=== PATIENT | female | born 1935 | race Caucasian/White ===

== ENCOUNTER 2017-08-03 17:43 | Inpatient (IN) | payer MEDICARE, OTHER ==
[~2017-08-03] VITALS: Ht 149.9 cm; Wt 57.8 kg
--- NOTE | ~2017-08-03 | HP ---
History And Physical [facility] [address] [place]. [address] NAME: ELADIO DIA : 35 STATUS : ADM IN [facility]#: [id number] AGE: 81 ADM/REG DATE : 08/03/17 MR#: [id number] REPORT SERV DATE: 08/04/17 DICTATED BY: WILLIE LOPEZ DATE: 08/04/17 REPORT STATUS : Draft TRANSCRIBED BY: MODL DATE: 08/04/17 DATE OF ADMISSION: 08/03/2017 REASON FOR ADMISSION: Perforated sigmoid diverticulitis with abscess. HISTORY OF PRESENT ILLNESS: This 81-year-old female presented to the emergency department with a several-week history of lower abdominal pain that became localized in the right lower quadrant. She was evaluated on an outpatient basis and underwent a CT scan that found the above findings. She was noted to have leukocytosis of 16,700 and no evidence of free air on the CT scan. She has a history of diverticulosis and had a colonoscopy one year ago that revealed no evidence of any malignancy. She was evaluated on an outpatient basis recently and was a tachycardic with a heart rate of 101. She was admitted for IV antibiotics, CT- guided drainage, serial physical exam, and bowel rest. She was informed that I recommend a resection of the involved segment after CT drainage with attempt at one stage surgery with methodist of GI continuity pending her response after image-guided drainage and with the history of her rheumatoid arthritis with need for prednisone. There is no acute abdominal findings at this time that warrant emergent surgery with colostomy. She has a history of hypertension, obesity, rheumatoid arthritis with steroid therapy and asthma. She denies any recent bright red blood per rectum, melena, or change in the caliber of her stools. PAST MEDICAL HISTORY: As above. PAST SURGICAL HISTORY: Hysterectomy and cholecystectomy. ALLERGIES: AVELOX, MANNITOL, ZOLEDRONIC ACID, GABAPENTIN AND SOME ENVIRONMENTAL ALLERGIES. PAST MEDICAL HISTORY: As above with first-degree internal hemorrhoids. MEDICATION: See hospital chart. SOCIAL HISTORY: The patient is . Her spouse is at the bedside with family. She denies alcohol, tobacco, or illicit drug usage. FAMILY HISTORY: Negative for colon cancer. REVIEW OF SYSTEMS: No headache, blurred vision, dizziness, chest pain, shortness of breath, cough, dyspnea on exertion, syncope, palpitations, jaundice, or itching. She does have abdominal pain. She did have some diarrhea with occasional blood in her stool. She denies bright red blood per rectum or melena that is consistent. PHYSICAL EXAMINATION: GENERAL: Well-developed female, in no apparent distress. NECK: Supple. No adenopathy. CARDIOVASCULAR: Regular rate and rhythm. RESPIRATORY: Clear to auscultation. History And Physical [address] [address] NAME: ELADIO DIA : 35 STATUS : ADM IN [facility]#: [id number] AGE: 81 ADM/REG DATE : 08/03/17 MR#: [id number] REPORT SERV DATE: 08/04/17 DICTATED BY: WILLIE LOPEZ DATE: 08/04/17 REPORT STATUS : Draft TRANSCRIBED BY: TREV DATE: 08/04/17 ABDOMEN: Soft, nondistended. The patient has lower quadrant and lower abdominal tenderness with voluntary guarding. There is no rebound. There is no mass. BACK: No CVA tenderness. EXTREMITIES: No clubbing, cyanosis, edema, or jaundice. ASSESSMENT: 1. Perforated sigmoid diverticulitis with abscess. 2. Leukocytosis secondary perforated sigmoid diverticulitis with abscess. 3. Rheumatoid arthritis with steroid therapy with prednisone. 4. Hypertension. 5. Asthma. 6. Obesity. PLAN: The patient will be admitted for IV antibiotics, bowel rest, hydration and serial physical exam after image guided drainage of the abscess. Pending clinical improvement, we will discuss timing of resection of the involved perforated segment with possibility of methodist of GI continuity pending clinical results with a history of need for steroids pending operative findings. The patient and family are aware of the current diagnosis and recommendations and are in agreement. DANIELA/TREV Willie Lopez M.D. / [id number] CC: Grzegorz Springer MATTHEW J. Donald Hetzel, M.D. Joseph Huffstutter, M.D.
--- NOTE | ~2017-08-03 | CN ---
Consultation Report [facility] [address] [place]. [address] NAME: ELADIO DIA : 35 STATUS : ADM IN PAT#: [id number] AGE: 81 ADM/REG DATE : 08/03/17 MR#: [id number] REPORT SERV DATE: 08/10/17 DICTATED BY: DATE: REPORT STATUS : Draft TRANSCRIBED BY: MODL DATE: 08/10/17 DATE OF CONSULTATION: REASON FOR CONSULTATION: THI. HISTORY OF PRESENT ILLNESS: This is a fairly pleasant 81-year-old female patient, who is followed in our office by Dr. Yolette Stephen. Baseline creatinine from laboratories available from our office appears to be around 1.2 to 1.3 with last available creatinine on 03/06/2017 at 1.3. She is admitted inpatient to Dr. Marquez's service and is postop day #1 from exploratory laparotomy with colostomy placement. This was undertaken for perforated sigmoid diverticulitis. She is doing very well postoperatively and is sitting at bedside. In review of her medications, it does appear she received two doses of Toradol postoperatively and is chronically managed in the outpatient setting on an ARB. She has reasonable urinary output. Her creatinine on review is near her known baseline at our office at 1.30 with modest acidosis with a CO2 of 19 on today's laboratories. We are asked to evaluate the patient today in light of her chronic renal disease and provide assistance in management. The patient is awake and alert, sitting at bedside. She has advanced her diet to what appears to be full liquids. She denies current chest pain. No nausea, vomiting, or diarrhea. PAST MEDICAL HISTORY: Positive for chronic renal disease followed by Dr. Yolette Stephen, baseline creatinine approximately 1.2 to 1.3. History remainder is positive for perforated sigmoid diverticulitis with abscess postop day 1 of exploratory lap with colostomy creation. Remainder of her history is positive for rheumatoid arthritis with chronic use of prednisone. The remainder of her medical history is positive for hypertension, anemia, and through review of her records, it appears she has had a previous occurrence of hypercalcemia. SOCIAL HISTORY: No ETOH. No illicit drugs. No tobacco. FAMILY HISTORY: Noncontributory, not reviewed during this consultation and dictation. ALLERGIES: INCLUDE AVELOX, MANNITOL, ZOLEDRONIC ACID, GABAPENTIN, AND ENVIRONMENTAL ALLERGIES. MEDICATIONS: Current active medications include Norvasc, Bentyl, heparin, NovoLog, Toradol, Synthroid, Cozaar, Singulair, Zosyn, Deltasone, Pravachol, Maxzide, and morphine [employer]. She also has antiemetic medications and electrolyte protocol as well in place. PHYSICAL EXAMINATION: VITAL SIGNS: Blood pressure 112/56, temperature 97.6, respiratory rate 18, and heart rate 89 beats per minute and regular. GENERAL: She is awake, alert, and oriented x3, in no acute distress. Sitting at bedside during evaluation. HEENT: Normocephalic and atraumatic. Normal ocular movements. No scleral icterus. No Consultation Report [address] [place]. [address] NAME: ELADIO DIA : 35 STATUS : ADM IN [facility]#: [id number] AGE: 81 ADM/REG DATE : 08/03/17 MR#: [id number] REPORT SERV DATE: 08/10/17 DICTATED BY: DATE: REPORT STATUS : Draft TRANSCRIBED BY: MODL DATE: 08/10/17 conjunctival pallor is appreciated. NECK: Supple without thyromegaly. No JVD or masses. CHEST: Positive S1 and S2. No rubs or gallops. LUNGS: Diminished. Clear to auscultation throughout. Normal expansion and effort bilaterally. No rhonchi or wheezes appreciated on auscultation. GI: Examination shows hypoactive but present bowel sounds. Ostomy in place postoperatively. : Examination is deferred. She does have Yu catheter to bedside drainage. NEUROLOGIC: Appears to be grossly intact, nonfocal. SKIN: Warm, dry, and intact to visualized surfaces. No rash, lesions, or ecchymosis. She does have a surgical wound that is closed with Dermabond. PSYCHIATRIC: Postoperatively, she appears to be of appropriate mood and affect. LABORATORY DATA: Pertinent laboratories and imaging to this evaluation are as follows: Most recent electrolyte profile; sodium 143, potassium 4.9, chloride 113, CO2 19, BUN 7, creatinine 1.30, and reflected GFR 38 mL/minute. Glucose of 132, calcium 7.8, magnesium 2.0, phosphorus 4.6. CBC shows white blood cell count of 21.8, RBC 3.13, hemoglobin 8.9, hematocrit 28.3, and platelets at 221. IMPRESSION AND PLAN: This is a chronic kidney disease stage 3, the patient of Dr. Yolette Stephen. Postop day 1 surgical intervention for sigmoid diverticulitis with ostomy creation. She appears to be near her normal baseline with baseline creatinine measurement at 1.3 today. Toradol was stopped in response to elevation of her creatinine outside of normal. Her laboratory readings here, which had been sub 1.0. She does have some intra and postoperative hypotension and could develop an acute kidney injury postoperatively. I would go ahead and hold her ARB, change her fluids to reflect fluids containing bicarb as her bicarb is somewhat depressed and her by mouth status has not ascended to p.o. medications at this point. Placed her on strict I's and Os. Follow her closely with serial laboratories and modify treatment plan based on clinical presentation, the patient's laboratory results. Further consultation with renal attending. No clinical reasoning at this point for urine studies or renal ultrasound. We will follow the patient and we appreciate consultation. /TREV Ortiz Lopez NP / [id number] CC: Grzegorz Springer MATTHEW J.
--- NOTE | ~2017-08-03 | OP ---
Record Of Operation [facility] [facility] [id number] [facility] [place]. [address] NAME: ELADIO DIA : 35 STATUS : ADM IN PAT#: [id number] AGE: 81 ADM/REG DATE : 08/03/17 MR#: [id number] REPORT SERV DATE: 08/09/17 DICTATED BY: LOIS LOPEZ DATE: 08/09/17 REPORT STATUS : Draft TRANSCRIBED BY: MODRadha DATE: 08/09/17 DATE OF PROCEDURE: PREOPERATIVE DIAGNOSES: 1. Perforated sigmoid diverticulitis with drain placed on a previous Interventional Radiology drain placement. 2. Rheumatoid arthritis, with steroids. 3. Hypertension. 4. Asthma. POSTOPERATIVE DIAGNOSES: 1. Perforated sigmoid diverticulitis with drain placed on a previous Interventional Radiology drain placement. 2. Rheumatoid arthritis, with steroids. 3. Hypertension. 4. Asthma. PROCEDURE: 1. Exploratory laparotomy. 2. Sigmoid colectomy with descending colostomy. ANESTHESIA: General. KING MAKER: Reuben. COMPLICATIONS: None. DRAINS: None. ESTIMATED BLOOD LOSS: 75 mL. FINDINGS: The patient was noted to have a significant residual inflammatory changes extending close to the peritoneal reflection in the distal sigmoid colon. In light of the continued active inflammation and current steroid therapy, the decision was made not to attempt to disturb GI continuity. TECHNIQUE: The patient was brought to the operating room placed on the table in supine position. She had preoperative IV antibiotics. She had sequential hose in place. She voided prior to the procedure. She underwent general endotracheal anesthesia and was prepped and draped in sterile fashion. A time-out was completed. She was in lithotomy position and a Yu catheter was placed there. After the time-out, a midline incision was made and the abdomen was entered. The patient was noted to have significant scarring of the small bowel into the pelvis. These adhesions were taken down using Metzenbaum scissors until the entire distal 2 feet of the terminal ilium was dissected out of the pelvis and the sigmoid colon was identified on its right side aspect. At this point, the Bookwalter retractor was placed and positioned to optimize viewing. The patient was placed in Record Of Operation [facility] [facility] [id number] [facility] [place]. [address] NAME: ELADIO DIA : 35 STATUS : ADM IN PAT#: [id number] AGE: 81 ADM/REG DATE : 08/03/17 MR#: [id number] REPORT SERV DATE: 08/09/17 DICTATED BY: LOIS LOPEZ DATE: 08/09/17 REPORT STATUS : Draft TRANSCRIBED BY: TREV DATE: 08/09/17 Trendelenburg position. The white line of Toldt was identified and the sigmoid colon and ascending colon were mobilized along the white line of Toldt to toward the splenic flexure. The bowel was mobilized in the midline in the avascular plane. The dissection then continued to the level of the descending colon sigmoid colon junction, was healthy without inflammation. A window was created in the mesenteric border and the linear stapler was used to divide the bowel at this point. The mesocolon was then divided onto the peritoneal reflection and behind the peritoneal reflection in the retrorectus space using electrocautery and the [employer] ultrasonic drew. The dissection continued to the level of the rectosigmoid junction and the bowel was then divided at the proximal rectum with a contour stapler. The staple line was noted to be hemostatic. The lateral edges of the staple line were marked with 2-0 Prolene sutures for future use. There was some bleeding from the left side of the pelvic floor from the adhesiolysis, this was necessary to mobilize the sigmoid colon of the pelvis. This was controlled with pressure and Lorri. The involved segment was sent to pathology. The abdomen was then thoroughly irrigated and hemostasis was noted. The descending colon was then prepared for colostomy formation. At this point, as there was no evidence of any other abnormalities, Seprafilm was placed in the pelvic floor over the rectal stump. The small bowel was allowed to return to the pelvis. The anterior fascia was then reapproximated using a running 0 Vicryl suture after the colostomy was formed in the left lower quadrant and the bowel segment was brought out with approximately 5 cm above the skin without tension. The mesentery was secured to the anterior abdominal wall of the sigmoid colon laterally with interrupted Vicryl sutures. The bowel was then oriented properly for colostomy formation and the anterior fascia was closed with a running #1 PDS suture. The subcutaneous tissues were then thoroughly irrigated and reapproximated using interrupted Vicryl sutures. The skin edges were reapproximated using running subcuticular Monocryl sutures. Dermabond was applied. The colostomy was then formed with three-point fixation with Vicryl. The colostomy appliance was then applied. The patient was extubated and taken to the recovery room in stable condition. All sponge and needle counts were reported correct. DANIELA/MODL Lois Lopez M.D. / [id number] CC: Grzegorz Springer MATTHEW J. Donald Hetzel, M.D. Joseph Huffstutter, M.D.
[~2017-08-03 17:43] MED LIST: ADVAIR100 INH; ADVAIR250 INH; ATV1 PO; BENTYL10 PO; COZ50 PO; GERIATRIC HP PO; HYZAAR 100/25 T1 TAB PO; LEVOTHYROXIN50 MCG PO; LIBRAX PO; MAX25 PO; NORV10 PO; P5 PO; PCET PO; PRAVAC PO; PREM625 PO; PRILO PO; PRILOSEC40 MG PO; SINGULAIR1 PO; SYN075 PO; TOPXL50 PO; VITAMIN D1000 UNI1 PO; VITC500 PO; ZYRTEC ALLGY10 MG PO
[2017-08-03 18:14] LABS: BASOPHILS 0.4 %; BASOPHILS ABSOLUTE 0.06 10/3/uL (0.0-0.16); EOSINOPHILS 0.1 %; EOSINOPHILS ABSOLUTE 0.02 10/3/uL (0.0-0.53); HEMATOCRIT 40.6 % (36.0-48.0); HEMOGLOBIN 12.7 g/dL (12.0-16.0); IMMATURE GRANULOCYTES 2.3 %; IMMATURE GRANULOCYTES ABSOLUTE 0.38 10/3/uL (0.0-0.11); LYMPHOCYTES 17.7 %; LYMPHOCYTES ABSOLUTE 2.95 10/3/uL (0.67-4.30); MEAN CORPUS HGB CONC 31.3 g/dL (32.0-36.0); MEAN CORPUSCULAR HEMOGLOB 27.9 pg (26.0-34.0); MEAN CORPUSCULAR VOLUME 89.2 fL (80-100); MEAN PLATELET VOLUME 10.6 fL (9.2-13.0); MONOCYTES 6.5 %; MONOCYTES ABSOLUTE 1.08 10/3/uL (0.21-1.20); RBC DISTRIBUTION WIDTH 15.2 % (12.0-16.0); RED CELL COUNT 4.55 10/6/uL (4.0-5.6)
[2017-08-03 18:15] LABS: MANUAL DIFF NO %; PLATELET COUNT 286 10/3/uL (150-400); WHITE BLOOD CELLS 16.7 10/3/uL (4.5-10.5)
[2017-08-03 18:32] LABS: A/G RATIO 0.9 (0.7-1.9); ALBUMIN 3.4 G/DL (3.5-5.0); ALKALINE PHOSPHATASE 142 U/L (45-117); BUN (BLOOD UREA NITROGEN) 19 MG/DL (6-23); CALCIUM, SERUM 9.1 MG/DL (8.5-10.4); CHLORIDE, SERUM 103 MMOL/L (96-112); CO2 (CARBON DIOXIDE) 27 MMOL/L (24-34); CREATININE 1.22 MG/DL (0.55-1.02); GFR AFRICAN AMERICAN 48 ML/MIN (>=60); GFR NON AFRICAN AMERICAN 42 ML/MIN (>=60); GLOBULIN 3.9 G/DL (2.5-4.1); GLUCOSE, SERUM 110 MG/DL (60-99); POTASSIUM, SERUM 3.9 MMOL/L (3.5-5.3); SGOT(AST) 22 U/L (5-40); SGPT(ALT) 20 U/L (5-65); SODIUM, SERUM 138 MMOL/L (135-148); TOTAL BILIRUBIN 0.6 MG/DL (0-1.2); TOTAL PROTEIN 7.3 G/DL (6.0-8.5)
[2017-08-03 18:40] LABS: WBC (NOT ORDERED) (RFLEX) 0 (0-5)
[2017-08-03 18:49] LABS: ASCORBIC ACID (UR NOT ORDER) NEG (NEG); BILIRUBIN, URINE NEGATIVE (NEG); ER URINALYSIS TAT 0 Hrs 09 Mins; KETONE, URINE NEGATIVE (NEG); LEUKOCYTE ESTERASE(NOT OR NEG (NEG); NITRITE (URINE) NEG (NEG)
[2017-08-03] MEDS ORDERED: PRILOSEC40 MG PO (19:30)
[2017-08-03] MEDS ORDERED: BENTYL10 PO (19:30)
[2017-08-03] MEDS ORDERED: P5 PO (19:30)
[2017-08-03] MEDS ORDERED: MAX25 PO (19:30)
[2017-08-03] MEDS ORDERED: PRAVAC PO (19:31)
[2017-08-03] MEDS ORDERED: NORV10 PO (19:31)
[2017-08-03] MEDS ORDERED: COZ50 PO (19:31)
[2017-08-03] MEDS ORDERED: VITAMIN D31000 UNIT PO (19:31)
[2017-08-03] MEDS ORDERED: ZYRTEC ALLGY10 MG PO (19:32)
[2017-08-03] MEDS ORDERED: SYN075 PO (19:32)
[2017-08-03] MEDS ORDERED: SINGULAIR1 PO (19:36)
[2017-08-04 05:14] LABS: BASOPHILS 0.4 %; BASOPHILS ABSOLUTE 0.06 10/3/uL (0.0-0.16); EOSINOPHILS 0.3 %; EOSINOPHILS ABSOLUTE 0.05 10/3/uL (0.0-0.53); HEMOGLOBIN 11.3 g/dL (12.0-16.0); IMMATURE GRANULOCYTES ABSOLUTE 0.28 10/3/uL (0.0-0.11); LYMPHOCYTES ABSOLUTE 2.72 10/3/uL (0.67-4.30); MEAN CORPUS HGB CONC 31.6 g/dL (32.0-36.0); MEAN CORPUSCULAR HEMOGLOB 28.2 pg (26.0-34.0); MEAN CORPUSCULAR VOLUME 89.3 fL (80-100); MEAN PLATELET VOLUME 10.5 fL (9.2-13.0); MONOCYTES 6.2 %; MONOCYTES ABSOLUTE 0.89 10/3/uL (0.21-1.20); NEUTROPHILS 72.1 %; NEUTROPHILS ABSOLUTE 10.32 10/3/uL (2.02-8.40); PLATELET COUNT 250 10/3/uL (150-400); RED CELL COUNT 4.01 10/6/uL (4.0-5.6); WHITE BLOOD CELLS 14.3 10/3/uL (4.5-10.5)
[2017-08-04 05:15] LABS: HEMATOCRIT 35.8 % (36.0-48.0); MANUAL DIFF NO %
[2017-08-04 05:27] LABS: A/G RATIO 0.9 (0.7-1.9); ALBUMIN 2.8 G/DL (3.5-5.0); BUN (BLOOD UREA NITROGEN) 16 MG/DL (6-23); CHLORIDE, SERUM 107 MMOL/L (96-112); CO2 (CARBON DIOXIDE) 27 MMOL/L (24-34); CREATININE 0.93 MG/DL (0.55-1.02); GFR AFRICAN AMERICAN 67 ML/MIN (>=60); GFR NON AFRICAN AMERICAN 58 ML/MIN (>=60); GLOBULIN 3.2 G/DL (2.5-4.1); POTASSIUM, SERUM 3.6 MMOL/L (3.5-5.3); SGOT(AST) 17 U/L (5-40); SGPT(ALT) 19 U/L (5-65); SODIUM, SERUM 143 MMOL/L (135-148); TOTAL BILIRUBIN 0.5 MG/DL (0-1.2)
[2017-08-04 05:34] LABS: ALKALINE PHOSPHATASE 122 U/L (45-117); GLUCOSE, SERUM 85 MG/DL (60-99)
[2017-08-04 09:30] LABS: INTERNATIONAL NORMAL RATI 1.1 UNITS (-); PARTIAL THROMBO TIME 27.1 SEC (22.5-37.2); PROTIME (NOT ORD) 13.6 SEC (12.0-14.5)
[2017-08-05 06:09] LABS: HEMATOCRIT 34.8 % (36.0-48.0); HEMOGLOBIN 10.8 g/dL (12.0-16.0); MANUAL DIFF YES %; MEAN CORPUSCULAR VOLUME 90.2 fL (80-100); MEAN PLATELET VOLUME 10.7 fL (9.2-13.0); PLATELET COUNT 226 10/3/uL (150-400); RBC DISTRIBUTION WIDTH 15.4 % (12.0-16.0); RED CELL COUNT 3.86 10/6/uL (4.0-5.6); WHITE BLOOD CELLS 13.4 10/3/uL (4.5-10.5)
[2017-08-05 06:20] LABS: BUN (BLOOD UREA NITROGEN) 13 MG/DL (6-23); CALCIUM, SERUM 8.1 MG/DL (8.5-10.4); CHLORIDE, SERUM 109 MMOL/L (96-112); CO2 (CARBON DIOXIDE) 24 MMOL/L (24-34); CREATININE 1.04 MG/DL (0.55-1.02); GFR AFRICAN AMERICAN 58 ML/MIN (>=60); GFR NON AFRICAN AMERICAN 50 ML/MIN (>=60); GLUCOSE, SERUM 91 MG/DL (60-99); POTASSIUM, SERUM 3.5 MMOL/L (3.5-5.3); SODIUM, SERUM 143 MMOL/L (135-148)
[2017-08-05 07:29] LABS: BAND NEUTROPHILS 3 %; LYMPHOCYTES 18 %; LYMPHOCYTES ABSOLUTE (CALC) 2.41 10/3/uL (0.67-4.30); MONOCYTES 2 %; MONOCYTES ABSOLUTE (CALC) 0.27 10/3/uL (0.21-1.20); NEUTROPHILS ABSOLUTE (CALC) 10.72 10/3/uL (2.02-8.40); PLATELET ESTIMATE ADQ (ADEQUATE); RBC MORPHOLOGY NORM (NORMAL); SEGMENTED NEUTROPHIL (0) 77 %; TOTAL NUCLEATED CELLS 100
[2017-08-06 05:02] LABS: BASOPHILS 0.2 %; BASOPHILS ABSOLUTE 0.03 10/3/uL (0.0-0.16); EOSINOPHILS 1.4 %; EOSINOPHILS ABSOLUTE 0.18 10/3/uL (0.0-0.53); HEMATOCRIT 31.4 % (36.0-48.0); IMMATURE GRANULOCYTES 0.8 %; LYMPHOCYTES 16.6 %; LYMPHOCYTES ABSOLUTE 2.07 10/3/uL (0.67-4.30); MEAN CORPUS HGB CONC 31.8 g/dL (32.0-36.0); MEAN CORPUSCULAR HEMOGLOB 28.7 pg (26.0-34.0); MEAN CORPUSCULAR VOLUME 90.2 fL (80-100); MEAN PLATELET VOLUME 10.9 fL (9.2-13.0); MONOCYTES 7.3 %; MONOCYTES ABSOLUTE 0.91 10/3/uL (0.21-1.20); NEUTROPHILS 73.7 %; NEUTROPHILS ABSOLUTE 9.18 10/3/uL (2.02-8.40); PLATELET COUNT 192 10/3/uL (150-400); RBC DISTRIBUTION WIDTH 15.3 % (12.0-16.0); RED CELL COUNT 3.48 10/6/uL (4.0-5.6); WHITE BLOOD CELLS 12.5 10/3/uL (4.5-10.5)
[2017-08-06 05:04] LABS: MANUAL DIFF NO %
[2017-08-06 05:08] LABS: BUN (BLOOD UREA NITROGEN) 7 MG/DL (6-23); CALCIUM, SERUM 7.8 MG/DL (8.5-10.4); CHLORIDE, SERUM 113 MMOL/L (96-112); CO2 (CARBON DIOXIDE) 25 MMOL/L (24-34); CREATININE 0.87 MG/DL (0.55-1.02); GFR AFRICAN AMERICAN 72 ML/MIN (>=60); GFR NON AFRICAN AMERICAN 62 ML/MIN (>=60); GLUCOSE, SERUM 141 MG/DL (60-99); POTASSIUM, SERUM 4.1 MMOL/L (3.5-5.3); SODIUM, SERUM 145 MMOL/L (135-148)
[2017-08-07 05:52] LABS: BASOPHILS 0.3 %; BASOPHILS ABSOLUTE 0.03 10/3/uL (0.0-0.16); EOSINOPHILS 1.3 %; EOSINOPHILS ABSOLUTE 0.14 10/3/uL (0.0-0.53); HEMATOCRIT 30.7 % (36.0-48.0); HEMOGLOBIN 9.6 g/dL (12.0-16.0); IMMATURE GRANULOCYTES 0.5 %; IMMATURE GRANULOCYTES ABSOLUTE 0.06 10/3/uL (0.0-0.11); LYMPHOCYTES 13.6 %; LYMPHOCYTES ABSOLUTE 1.49 10/3/uL (0.67-4.30); MEAN CORPUS HGB CONC 31.3 g/dL (32.0-36.0); MEAN CORPUSCULAR HEMOGLOB 28.2 pg (26.0-34.0); MEAN CORPUSCULAR VOLUME 90.3 fL (80-100); MEAN PLATELET VOLUME 11.2 fL (9.2-13.0); MONOCYTES 7.6 %; MONOCYTES ABSOLUTE 0.83 10/3/uL (0.21-1.20); NEUTROPHILS 76.7 %; NEUTROPHILS ABSOLUTE 8.37 10/3/uL (2.02-8.40); PLATELET COUNT 181 10/3/uL (150-400); RBC DISTRIBUTION WIDTH 14.9 % (12.0-16.0); WHITE BLOOD CELLS 10.9 10/3/uL (4.5-10.5)
[2017-08-07 05:54] LABS: MANUAL DIFF NO %
[2017-08-07 05:57] LABS: CALCIUM, SERUM 8.2 MG/DL (8.5-10.4); CHLORIDE, SERUM 112 MMOL/L (96-112); CO2 (CARBON DIOXIDE) 25 MMOL/L (24-34); CREATININE 0.74 MG/DL (0.55-1.02); GFR AFRICAN AMERICAN 88 ML/MIN (>=60); GFR NON AFRICAN AMERICAN 76 ML/MIN (>=60); POTASSIUM, SERUM 3.6 MMOL/L (3.5-5.3); SODIUM, SERUM 145 MMOL/L (135-148)
[2017-08-07 05:59] LABS: BUN (BLOOD UREA NITROGEN) 3 MG/DL (6-23); GLUCOSE, SERUM 99 MG/DL (60-99)
[2017-08-08 06:12] LABS: BASOPHILS 0.5 %; BASOPHILS ABSOLUTE 0.05 10/3/uL (0.0-0.16); EOSINOPHILS 1.4 %; EOSINOPHILS ABSOLUTE 0.13 10/3/uL (0.0-0.53); HEMATOCRIT 30.7 % (36.0-48.0); HEMOGLOBIN 9.8 g/dL (12.0-16.0); IMMATURE GRANULOCYTES 0.4 %; IMMATURE GRANULOCYTES ABSOLUTE 0.04 10/3/uL (0.0-0.11); LYMPHOCYTES ABSOLUTE 1.52 10/3/uL (0.67-4.30); MEAN CORPUS HGB CONC 31.9 g/dL (32.0-36.0); MEAN CORPUSCULAR HEMOGLOB 28.7 pg (26.0-34.0); MEAN PLATELET VOLUME 11.8 fL (9.2-13.0); MONOCYTES 9.4 %; MONOCYTES ABSOLUTE 0.89 10/3/uL (0.21-1.20); NEUTROPHILS 72.3 %; NEUTROPHILS ABSOLUTE 6.87 10/3/uL (2.02-8.40); PLATELET COUNT 192 10/3/uL (150-400); RBC DISTRIBUTION WIDTH 14.9 % (12.0-16.0); RED CELL COUNT 3.41 10/6/uL (4.0-5.6); WHITE BLOOD CELLS 9.5 10/3/uL (4.5-10.5)
[2017-08-08 06:13] LABS: MANUAL DIFF NO %
[2017-08-08 06:30] LABS: BUN (BLOOD UREA NITROGEN) 2 MG/DL (6-23); CALCIUM, SERUM 8.7 MG/DL (8.5-10.4); CHLORIDE, SERUM 113 MMOL/L (96-112); CO2 (CARBON DIOXIDE) 22 MMOL/L (24-34); CREATININE 0.71 MG/DL (0.55-1.02); GFR AFRICAN AMERICAN 93 ML/MIN (>=60); GFR NON AFRICAN AMERICAN 80 ML/MIN (>=60); GLUCOSE, SERUM 102 MG/DL (60-99); POTASSIUM, SERUM 3.7 MMOL/L (3.5-5.3); SODIUM, SERUM 144 MMOL/L (135-148)
[2017-08-09 06:36] LABS: BASOPHILS 0.5 %; BASOPHILS ABSOLUTE 0.05 10/3/uL (0.0-0.16); EOSINOPHILS 1.3 %; EOSINOPHILS ABSOLUTE 0.12 10/3/uL (0.0-0.53); HEMATOCRIT 31.9 % (36.0-48.0); IMMATURE GRANULOCYTES 0.4 %; IMMATURE GRANULOCYTES ABSOLUTE 0.04 10/3/uL (0.0-0.11); LYMPHOCYTES 20.5 %; LYMPHOCYTES ABSOLUTE 1.91 10/3/uL (0.67-4.30); MEAN CORPUS HGB CONC 31.3 g/dL (32.0-36.0); MEAN CORPUSCULAR HEMOGLOB 28.1 pg (26.0-34.0); MEAN CORPUSCULAR VOLUME 89.6 fL (80-100); MEAN PLATELET VOLUME 11.5 fL (9.2-13.0); MONOCYTES 9.4 %; MONOCYTES ABSOLUTE 0.88 10/3/uL (0.21-1.20); NEUTROPHILS 67.9 %; NEUTROPHILS ABSOLUTE 6.33 10/3/uL (2.02-8.40); PLATELET COUNT 208 10/3/uL (150-400); RBC DISTRIBUTION WIDTH 15.2 % (12.0-16.0); RED CELL COUNT 3.56 10/6/uL (4.0-5.6); WHITE BLOOD CELLS 9.3 10/3/uL (4.5-10.5)
[2017-08-09 06:37] LABS: MANUAL DIFF NO %
[2017-08-09 06:48] LABS: BUN (BLOOD UREA NITROGEN) 2 MG/DL (6-23); CALCIUM, SERUM 8.6 MG/DL (8.5-10.4); CHLORIDE, SERUM 112 MMOL/L (96-112); CO2 (CARBON DIOXIDE) 24 MMOL/L (24-34); CREATININE 0.73 MG/DL (0.55-1.02); GFR AFRICAN AMERICAN 90 ML/MIN (>=60); GFR NON AFRICAN AMERICAN 77 ML/MIN (>=60); GLUCOSE, SERUM 90 MG/DL (60-99); PHOSPHORUS, SERUM 2.3 MG/DL (2.5-4.5); POTASSIUM, SERUM 3.9 MMOL/L (3.5-5.3); SODIUM, SERUM 144 MMOL/L (135-148)
[2017-08-10 04:52] LABS: BASOPHILS 0 %; BASOPHILS ABSOLUTE 0.01 10/3/uL (0.0-0.16); EOSINOPHILS 0 %; HEMOGLOBIN 8.9 g/dL (12.0-16.0); IMMATURE GRANULOCYTES 0.5 %; LYMPHOCYTES 3.7 %; LYMPHOCYTES ABSOLUTE 0.81 10/3/uL (0.67-4.30); MEAN CORPUS HGB CONC 31.4 g/dL (32.0-36.0); MEAN CORPUSCULAR HEMOGLOB 28.4 pg (26.0-34.0); MEAN CORPUSCULAR VOLUME 90.4 fL (80-100); MEAN PLATELET VOLUME 11.6 fL (9.2-13.0); MONOCYTES 5.5 %; NEUTROPHILS 90.3 %; NEUTROPHILS ABSOLUTE 19.65 10/3/uL (2.02-8.40); PLATELET COUNT 221 10/3/uL (150-400); RBC DISTRIBUTION WIDTH 15.4 % (12.0-16.0); RED CELL COUNT 3.13 10/6/uL (4.0-5.6)
[2017-08-10 04:55] LABS: HEMATOCRIT 28.3 % (36.0-48.0); MANUAL DIFF NO %; WHITE BLOOD CELLS 21.8 10/3/uL (4.5-10.5)
[2017-08-10 05:10] LABS: BUN (BLOOD UREA NITROGEN) 7 MG/DL (6-23); CALCIUM, SERUM 7.8 MG/DL (8.5-10.4); CHLORIDE, SERUM 113 MMOL/L (96-112); CO2 (CARBON DIOXIDE) 19 MMOL/L (24-34); GFR AFRICAN AMERICAN 45 ML/MIN (>=60); GFR NON AFRICAN AMERICAN 38 ML/MIN (>=60); GLUCOSE, SERUM 132 MG/DL (60-99); POTASSIUM, SERUM 4.9 MMOL/L (3.5-5.3); SODIUM, SERUM 143 MMOL/L (135-148)
[2017-08-10 07:46] LABS: PHOSPHORUS, SERUM 4.6 MG/DL (2.5-4.5)
[2017-08-11 07:45] LABS: BASOPHILS 0.1 %; BASOPHILS ABSOLUTE 0.02 10/3/uL (0.0-0.16); EOSINOPHILS 0.2 %; EOSINOPHILS ABSOLUTE 0.03 10/3/uL (0.0-0.53); HEMOGLOBIN 7.5 g/dL (12.0-16.0); IMMATURE GRANULOCYTES 0.4 %; IMMATURE GRANULOCYTES ABSOLUTE 0.07 10/3/uL (0.0-0.11); LYMPHOCYTES 7.7 %; LYMPHOCYTES ABSOLUTE 1.41 10/3/uL (0.67-4.30); MEAN CORPUS HGB CONC 32.1 g/dL (32.0-36.0); MEAN CORPUSCULAR HEMOGLOB 28.7 pg (26.0-34.0); MEAN CORPUSCULAR VOLUME 89.7 fL (80-100); MEAN PLATELET VOLUME 11.3 fL (9.2-13.0); MONOCYTES 7.8 %; MONOCYTES ABSOLUTE 1.43 10/3/uL (0.21-1.20); NEUTROPHILS 83.8 %; NEUTROPHILS ABSOLUTE 15.37 10/3/uL (2.02-8.40); PLATELET COUNT 179 10/3/uL (150-400); RBC DISTRIBUTION WIDTH 15.4 % (12.0-16.0); RED CELL COUNT 2.61 10/6/uL (4.0-5.6); WHITE BLOOD CELLS 18.3 10/3/uL (4.5-10.5)
[2017-08-11 07:47] LABS: HEMATOCRIT 23.4 % (36.0-48.0); MANUAL DIFF NO %
[2017-08-11 08:06] LABS: ALBUMIN 1.9 G/DL (3.5-5.0); BUN (BLOOD UREA NITROGEN) 10 MG/DL (6-23); CALCIUM, SERUM 6.9 MG/DL (8.5-10.4); CHLORIDE, SERUM 111 MMOL/L (96-112); CO2 (CARBON DIOXIDE) 25 MMOL/L (24-34); CREATININE 0.89 MG/DL (0.55-1.02); GFR AFRICAN AMERICAN 70 ML/MIN (>=60); GFR NON AFRICAN AMERICAN 61 ML/MIN (>=60); GLUCOSE, SERUM 81 MG/DL (60-99); PHOSPHORUS, SERUM 2.1 MG/DL (2.5-4.5); POTASSIUM, SERUM 3.6 MMOL/L (3.5-5.3); SODIUM, SERUM 142 MMOL/L (135-148)
[2017-08-12 05:42] LABS: BASOPHILS 0.2 %; BASOPHILS ABSOLUTE 0.03 10/3/uL (0.0-0.16); EOSINOPHILS 0.7 %; EOSINOPHILS ABSOLUTE 0.12 10/3/uL (0.0-0.53); HEMATOCRIT 25.3 % (36.0-48.0); HEMOGLOBIN 8.1 g/dL (12.0-16.0); IMMATURE GRANULOCYTES 0.6 %; IMMATURE GRANULOCYTES ABSOLUTE 0.11 10/3/uL (0.0-0.11); LYMPHOCYTES ABSOLUTE 2.08 10/3/uL (0.67-4.30); MEAN CORPUSCULAR HEMOGLOB 28.6 pg (26.0-34.0); MEAN CORPUSCULAR VOLUME 89.4 fL (80-100); MEAN PLATELET VOLUME 11.2 fL (9.2-13.0); MONOCYTES 7.5 %; RBC DISTRIBUTION WIDTH 15.5 % (12.0-16.0); RED CELL COUNT 2.83 10/6/uL (4.0-5.6); WHITE BLOOD CELLS 17.3 10/3/uL (4.5-10.5)
[2017-08-12 05:49] LABS: MANUAL DIFF NO %; PLATELET COUNT 238 10/3/uL (150-400)
[2017-08-12 05:52] LABS: BUN (BLOOD UREA NITROGEN) 8 MG/DL (6-23); CALCIUM, SERUM 7.6 MG/DL (8.5-10.4); CHLORIDE, SERUM 108 MMOL/L (96-112); CO2 (CARBON DIOXIDE) 27 MMOL/L (24-34); CREATININE 0.72 MG/DL (0.55-1.02); GFR AFRICAN AMERICAN 91 ML/MIN (>=60); GFR NON AFRICAN AMERICAN 79 ML/MIN (>=60); GLUCOSE, SERUM 74 MG/DL (60-99); PHOSPHORUS, SERUM 2.4 MG/DL (2.5-4.5); POTASSIUM, SERUM 3.5 MMOL/L (3.5-5.3); SODIUM, SERUM 143 MMOL/L (135-148)
[2017-08-13 05:15] LABS: BASOPHILS 0.3 %; BASOPHILS ABSOLUTE 0.04 10/3/uL (0.0-0.16); EOSINOPHILS 0.3 %; EOSINOPHILS ABSOLUTE 0.05 10/3/uL (0.0-0.53); HEMOGLOBIN 8.3 g/dL (12.0-16.0); IMMATURE GRANULOCYTES 1.1 %; IMMATURE GRANULOCYTES ABSOLUTE 0.18 10/3/uL (0.0-0.11); LYMPHOCYTES 10.9 %; LYMPHOCYTES ABSOLUTE 1.73 10/3/uL (0.67-4.30); MEAN CORPUS HGB CONC 30.7 g/dL (32.0-36.0); MEAN CORPUSCULAR VOLUME 91.2 fL (80-100); MEAN PLATELET VOLUME 10.8 fL (9.2-13.0); MONOCYTES 6.9 %; MONOCYTES ABSOLUTE 1.09 10/3/uL (0.21-1.20); NEUTROPHILS 80.5 %; NEUTROPHILS ABSOLUTE 12.75 10/3/uL (2.02-8.40); RBC DISTRIBUTION WIDTH 15.4 % (12.0-16.0); RED CELL COUNT 2.96 10/6/uL (4.0-5.6); WHITE BLOOD CELLS 15.8 10/3/uL (4.5-10.5)
[2017-08-13 05:16] LABS: MANUAL DIFF NO %; PLATELET COUNT 312 10/3/uL (150-400)
[2017-08-13 05:19] LABS: BUN (BLOOD UREA NITROGEN) 8 MG/DL (6-23); CALCIUM, SERUM 8.7 MG/DL (8.5-10.4); CHLORIDE, SERUM 106 MMOL/L (96-112); CO2 (CARBON DIOXIDE) 23 MMOL/L (24-34); CREATININE 0.63 MG/DL (0.55-1.02); GFR AFRICAN AMERICAN 97 ML/MIN (>=60); GFR NON AFRICAN AMERICAN 84 ML/MIN (>=60); GLUCOSE, SERUM 71 MG/DL (60-99); PHOSPHORUS, SERUM 2.8 MG/DL (2.5-4.5); POTASSIUM, SERUM 3.5 MMOL/L (3.5-5.3); SODIUM, SERUM 143 MMOL/L (135-148)
[2017-08-14 06:32] LABS: BASOPHILS 0.3 %; BASOPHILS ABSOLUTE 0.04 10/3/uL (0.0-0.16); EOSINOPHILS 1.4 %; EOSINOPHILS ABSOLUTE 0.17 10/3/uL (0.0-0.53); HEMOGLOBIN 8.1 g/dL (12.0-16.0); IMMATURE GRANULOCYTES 2.9 %; IMMATURE GRANULOCYTES ABSOLUTE 0.35 10/3/uL (0.0-0.11); LYMPHOCYTES 14.6 %; LYMPHOCYTES ABSOLUTE 1.77 10/3/uL (0.67-4.30); MEAN CORPUS HGB CONC 31.2 g/dL (32.0-36.0); MEAN CORPUSCULAR HEMOGLOB 27.8 pg (26.0-34.0); MEAN CORPUSCULAR VOLUME 89.3 fL (80-100); MEAN PLATELET VOLUME 11.1 fL (9.2-13.0); MONOCYTES 9.5 %; MONOCYTES ABSOLUTE 1.15 10/3/uL (0.21-1.20); NEUTROPHILS 71.3 %; NEUTROPHILS ABSOLUTE 8.65 10/3/uL (2.02-8.40); NUCLEATED RED BLOOD CELLS 1.2 /100WBC (0-0); PLATELET COUNT 264 10/3/uL (150-400); RBC DISTRIBUTION WIDTH 15.6 % (12.0-16.0); RED CELL COUNT 2.91 10/6/uL (4.0-5.6); WHITE BLOOD CELLS 12.1 10/3/uL (4.5-10.5)
[2017-08-14 06:33] LABS: MANUAL DIFF NO %
[2017-08-14 06:46] LABS: BUN (BLOOD UREA NITROGEN) 6 MG/DL (6-23); CALCIUM, SERUM 8.4 MG/DL (8.5-10.4); CHLORIDE, SERUM 109 MMOL/L (96-112); CO2 (CARBON DIOXIDE) 24 MMOL/L (24-34); CREATININE 0.57 MG/DL (0.55-1.02); GFR AFRICAN AMERICAN 101 ML/MIN (>=60); GFR NON AFRICAN AMERICAN 87 ML/MIN (>=60); GLUCOSE, SERUM 68 MG/DL (60-99); POTASSIUM, SERUM 3.5 MMOL/L (3.5-5.3); SODIUM, SERUM 145 MMOL/L (135-148)
== END 2017-08-14 12:04 | disposition home or self-care (01) | DRG 329 ==
LOC: ER 17:43 → 4SO 21:19
PROVIDERS: Emergency Medicine; Surgery
PROC: 0DTN0ZZ Resection of Sigmoid Colon, Open Approach (ICD-10-PCS; principal; 2017-08-03)
PROC: 0D1M0Z4 Bypass Descending Colon to Cutaneous, Open Approach (ICD-10-PCS; 2017-08-03)
PROC: 0W9F30Z Drainage of Abdominal Wall with Drainage Device, Percutaneous Approach (ICD-10-PCS; 2017-08-04)
PROC: 0W2FX0Z Change Drainage Device in Abdominal Wall, External Approach (ICD-10-PCS; 2017-08-06)
DX: K57.20 Diverticulitis of large intestine with perforation and abscess without bleeding (principal); N17.0 Acute kidney failure with tubular necrosis; M06.9 Rheumatoid arthritis, unspecified; E66.9 Obesity, unspecified; Z79.52 Long term (current) use of systemic steroids; J45.909 Unspecified asthma, uncomplicated; I12.9 Hypertensive chronic kidney disease with stage 1 through stage 4 chronic kidney disease, or unspecified chronic kidney disease; N18.3 Chronic kidney disease, stage 3 (moderate); E03.9 Hypothyroidism, unspecified; E78.5 Hyperlipidemia, unspecified
CPT/HCPCS: 10030; 49406; 49418; 76080; 80048; 80053; 80069; 81001; 82330; 82962; 83690; 83735; 84100; 85025; 85610; 85730; 87070; 87075; 87077; 87186; 87205; 88307; 99284; A9270-GY; C1729; C1765; C1769; J0610; J1170; J1720; J1885; J2250; J2270; J2405; J2543; J2550; J2710; J2795; J3010; J3475